=== PATIENT | male | born 1965 | race Caucasian/White ===

== ENCOUNTER → 2023-05-30 10:49 | Outpatient (CLI) | payer OTHER, SELFPAY ==
--- NOTE | 2023-05-30 | DI.MRI.S_ITS ---
PROCEDURE: MR KNEE RT WO CON INDICATIONS: Pain in right knee TECHNIQUE: Noncontrast sagittal PD fast spin echo and T2 fast spin echo with fat saturation, sagittal 3-D FLASH with fat saturation; coronal T1 spin echo and PD fast spin echo with fat saturation, and axial PD fast spin echo with fat saturation through the knee. COMPARISON: None. FINDINGS: Image quality: Excellent. Anterior cruciate ligament: Intact. Posterior cruciate ligament: Intact. Medial collateral ligament: Intact. Lateral collateral ligament: Intact. Medial meniscus: Intact. Lateral meniscus: Intact. Medial and lateral tendons: The semimembranosus tendon insertions appear intact. Visualized portions of the pes anserinus tendons appear normal. The popliteus tendon is intact. Iliotibial band appears normal. Anterior structures: Mild to moderate patellar tendinosis and distal quadriceps tendinosis. Small nonedematous enthesophytes at the distal quadriceps insertion. No patellar subluxation. No femoral trochlear dysplasia or ventral trochlear prominence. No edema in the infrapatellar fat pad. Bones and cartilage: No bone marrow contusions or fractures. Medial femorotibial cartilage: Mild partial-thickness cartilage thinning and surface irregularity in the weight-bearing portion of the medial femorotibial compartment. Lateral femorotibial cartilage: Partial-thickness cartilage irregularity is seen at the posterior weight-bearing portion of the lateral femorotibial compartment. Patellofemoral cartilage: Mild grade 2 chondromalacia. Soft tissues: Small joint effusion. Trace medial popliteal cyst. The musculature surrounding the knee is normal in bulk. IMPRESSION: 1. No acute trabecular bone injury. Cruciate and collateral ligaments are intact. No meniscal tear. 2. Tricompartmental grade 2 chondromalacia with small marginal osteophytes. 3. [id number] patellar tendinosis and distal quadriceps tendinosis. 4. Small joint effusion. Approved by: Jerry Morgan M.D. on 05/31/2023 at 9:49
== END ==
LOC: MRI 10:51
PROVIDERS: PCP Family Medicine; Referring Provider Family Medicine; Visit Provider Family Medicine
DX: M67.863 Other specified disorders of tendon, right knee (principal); M22.41 Chondromalacia patellae, right knee; M25.461 Effusion, right knee; M25.561 Pain in right knee; R93.6 Abnormal findings on diagnostic imaging of limbs
CPT/HCPCS: 73721

== ENCOUNTER 2024-04-13 14:54 | Inpatient (IN) | payer OTHER, SELFPAY ==
[2024-04-13] VITALS (7 sets, daily range): BP systolic 140–164; BP diastolic 89–107; PULSE 60–79; RESP 15–22; TEMP 36.6–37; O2SAT 97–99; BMI 31.0
--- NOTE | 2024-04-13 15:02 | DI.RAD.S_ITS ---
PROCEDURE: XR CHEST 1V INDICATIONS: chest pain TECHNIQUE: One view of the chest was acquired. COMPARISON: None. FINDINGS: Surgical changes and devices: None. Lungs and pleura: Lungs are clear. Low lung volumes. No pleural effusions or pneumothorax. Mediastinum: Mediastinal contours appear normal. Heart size is normal. Bones and chest wall: No suspicious bony lesions. Overlying soft tissues appear unremarkable. IMPRESSION: No acute cardiopulmonary abnormality is seen. Dictated by: Douglas Crump M.D. on 04/13/2024 at 15:18 Approved by: Douglas Crump M.D. on 04/13/2024 at 15:19
--- NOTE | 2024-04-13 15:02 | EKG_ITS ---
[address] [address] Test Date: 2024-04-13 Pat Name: Everett Sanon Department: Room: Gender: Male Laboratory Administrative Director: GABINO : 1965 Requested By: Order Number: [id number] Reading MD: Haresh Zuniga Measurements Intervals [place] Rate: 77 P: 38 [place]: 154 QRS: -3 QRSD: 110 T: 36 QT: 378 QTc: 427 Interpretive Statements Normal sinus rhythm Incomplete right bundle branch block Electronically Signed On 04-13-2024 16:08:38 PST by Haresh Zuniga
[2024-04-13] MEDS: ASPIRIN 81 MG CHEW TAB 243 MG PO (15:15)
[2024-04-13 15:18] LABS: Add Manual Diff / Slide Review NO; Basophils Absolute Auto 0 /uL (0-100); Basophils Percent Auto 1.1 % (0-2); Eosinophils Absolute Auto 100 /uL (0-450); Eosinophils Percent Auto 2.1 % (2-4); Hematocrit 38.5 % (41-53); Hemoglobin 13.7 g/dL (13.5-17.5); Lymphocytes Absolute Auto 1100 /uL (1100-4500); Lymphocytes Percent Auto 36.1 % (25-40); Mean Corpuscular HGB Conc 35.6 % (30-36); Mean Corpuscular Hemoglobin 33.1 PG (26-34); Mean Corpuscular Volume 92.8 fL (80-100); Monocytes Absolute Auto 200 /uL (0-900); Monocytes Percent Auto 7.5 % (3-14); Neutrophils Absolute Auto 1700 /uL (1500-7000); Neutrophils Percent Auto 53.2 % (50-75); Platelet Count 135 X10^3/uL (150-400); Red Blood Cell Count 4.15 X10^6/uL (4.5-5.9); Red Cell Distribution Width 13.4 % (11.6-14.8); White Blood Cell Count 3.1 X10^3/uL (4.5-11.0)
[2024-04-13 15:26] LABS: Prothrombin Time 11.5 SECONDS (9.4-12.5)
[2024-04-13 15:27] LABS: Alanine Aminotransferase 70 IU/L (<50); Albumin 4.5 g/dL (3.5-5.0); Albumin Globulin Ratio 1.7 (1.0-2.8); Alkaline Phosphatase 45 U/L (38-126); Aspartate Aminotransferase 40 IU/L (17-59); BUN Creatinine Ratio 16.8 (6-22); Bilirubin Total 0.7 mg/dL (0.2-1.3); Blood Urea Nitrogen 17 mg/dL (9-20); Calcium 9.1 mg/dL (8.4-10.2); Carbon Dioxide 26 mmol/L (22-32); Chloride 100 mmol/L (98-107); Creatine Kinase 112 U/L (55-170); Estimated Glomerular Filt Rate > 60 mL/min (>60); Globulin 2.7 g/dL (1.7-4.1); Glucose 307 mg/dL (70-100); HEMOLYSIS < 15 (0-50); Lipase 187 U/L (23-300); Magnesium 1.6 mg/dL (1.6-2.3); Potassium 4.1 mmol/L (3.4-5.1); Sodium 135 mmol/L (137-145); Total Protein 7.2 g/dL (6.3-8.2)
[2024-04-13 15:28] LABS: PTT Partial Thromboplastin Tim 33 SECONDS (25.1-36.5)
[2024-04-13 15:39] LABS: NT-proBNP (BNP-Adult 18+) < 20 pg/mL (<125); Troponin I < 0.012 ng/mL (0.01-0.034)
[2024-04-13 18:17] LABS: Troponin I 0.029 ng/mL (0.01-0.034)
--- NOTE | 2024-04-13 18:48 | ED_ITS ---
HPI - Chest Pain General Chief Complaint: Chest Pain Stated Complaint: possible heart attack Time Seen by Provider: 04/13/24 15:28 History of Present Illness HPI narrative: 59-year-old male with no known coronary artery disease but multiple risk factors, history of diabetes, hypertension, history of hyperlipidemia on therapy, family history of CAD, but nonsmoker, recalls treadmill stress testing about 20 years ago, none last couple years, today was walking in the [place] area up a slight hill 130pm when he had chest discomfort lasting 5 minutes, midsternal, does not recall any diaphoresis but sensation of generalized weakness, completed his walk to work on a more flat surface about 1/4 mi total to work, was sweaty on his arrival there. He looked sweaty and pale to his coworkers, then decided to be evaluated here. No further chest discomfort. Feels better. Related Data Home Medications Medication Instructions Recorded Confirmed cetirizine 10 mg tablet 10 mg PO QDAY #0 tabs 10/30/15 04/13/24 sertraline 25 mg tablet (Zoloft) 25 mg PO QDAY #30 tabs 10/30/15 04/13/24 simvastatin 10 mg tablet (Zocor) 10 mg PO HS #0 tabs 10/30/15 04/13/24 dulaglutide 0.75 mg/0.5 mL 0.75 mg SUBCUT QWEEK 04/13/24 04/13/24 subcutaneous pen injector (Trulicity) metformin 500 mg tablet,extended 1,000 mg PO DAILY 04/13/24 04/13/24 release 24 hr Allergies Allergy/AdvReac Type Severity Reaction Status Date / Time No Known Drug Allergies Allergy Verified 04/13/24 15:15 Patient History Medical History (Updated 04/13/24 @ 20:13 by Frank Almaguer MD) SHON on CPAP Diabetes type 2 Hyperlipidemia Social History household members: spouse Smoking Status: Never smoker alcohol intake: current Smoking Status: Never smoker Exam Narrative Exam Narrative: GENERAL: Well-developed patient, in mild distress. HEAD: Atraumatic. Normocephalic. EYES: Pupils equal round and reactive. Extraocular motions intact. No scleral icterus. No injection or drainage. ENT: Nose without bleeding, purulent drainage. Throat without erythema, tonsillar hypertrophy or exudate. Airway patent. NECK: Trachea midline. Non tender CARDIOVASCULAR: Regular rate and rhythm without murmurs, gallops, or rubs. RESPIRATORY: Clear to auscultation. Breath sounds equal bilaterally. No wheezes, rales, or rhonchi. GASTROINTESTINAL: Abdomen soft, non-tender, nondistended. EXTREMITIES: No edema or joint tenderness. BACK: Nontender without deformity or crepitance. No flank tenderness. NEURO: AOx3. Motor functions grossly nonfocal SKIN: No rash or erythema of visible areas Initial Vital Signs Initial Vital Signs: Vital Signs Temperature 98 F 04/13/24 14:57 Pulse Rate 79 04/13/24 14:57 Respiratory Rate 17 04/13/24 14:57 Blood Pressure 140/89 04/13/24 14:57 Pulse Oximetry 99 04/13/24 14:57 Oxygen Delivery Method Room Air 04/13/24 14:57 Scores HEART Score Heart Score history: Moderately Suspicious Heart Score EKG: Normal Heart Score Age: 45-64 years old Heart Score risk factors: > 3 risk factors or hx of atherosclerotic disease Heart Score troponin: < or = to normal limit Heart Score Total: 4 Course Orders Ordered: ED Orders 04/13/24 17:35 Trop I [Troponin I] Stat Acetaminophen (Acetaminophen 325 Mg Tablet) 650 mg PO Q6H PRN PRN Reason: Fever/Mild Pain (1-3) Al Hydrox/Mg Hydrox/Simethicone (Mag Hydrox/Alum/Simeth 30 Ml Udc) 30 ml PO Q6HR PRN PRN Reason: Dyspepsia Atorvastatin Calcium (Atorvastatin 20 Mg Tablet) 10 mg PO BEDTIME [facility] Last Admin: 04/13/24 22:18 Dose: 10 mg Documented By: MYLES Enoxaparin Sodium (Enoxaparin 40 Mg/0.4 Ml Syringe) 40 mg SUBCUT DAILY [facility] Dextrose (D10w) 100 mls @ 1,200 mls/hr IV PRN PRN PRN Reason: Hypoglycemia Influenza Virus Vaccine (Influenza Vaccine Qiv 0.5 Ml Syringe) 0.5 ml IM .ONCE ONE Stop: 04/14/24 21:23 Insulin Human Lispro (Insulin Lispro 100 Unit/Ml 3ml Vial) 0 unit SUBCUT ACHS [facility]; Protocol Last Admin: 04/13/24 22:19 Dose: Not Given Documented By: FM Naloxone HCl (Naloxone 0.4 Mg/Ml Vial) 0.2 mg IV Q2MIN PRN PRN Reason: Opiate Reversal Ondansetron HCl (Ondansetron 4 Mg/2 Ml Inj) 4 mg IV Q8HR PRN PRN Reason: Nausea And Vomiting Sertraline HCl (Sertraline 50 Mg Tablet) 25 mg PO DAILY BHAVNA Discontinued Medications Aspirin (Aspirin 81 Mg Chew Tab) 243 mg PO NOW ONE Stop: 04/13/24 15:03 Last Admin: 04/13/24 15:15 Dose: 243 mg Documented By: PAOLO Insulin Human Regular (Insulin Regular 100 Unit/Ml 3 Ml Vial) 5 unit SUBCUT NOW ONE Stop: 04/13/24 19:05 Last Admin: 04/13/24 19:17 Dose: 5 unit Documented By: JUMA Co-signed By: EDUARDO Vital Signs Vital signs: Vital Signs - 8 hr 04/13/24 18:00 04/13/24 18:00 04/13/24 18:30 Pulse Rate 64 60 Respiratory Rate 20 15 Blood Pressure 150/100 H Pulse Oximetry 97 97 04/13/24 18:30 04/13/24 19:00 04/13/24 19:00 Pulse Rate 65 Respiratory Rate 22 Blood Pressure 145/101 H 143/105 H Pulse Oximetry 99 04/13/24 19:30 04/13/24 19:30 Pulse Rate 60 Respiratory Rate 18 Blood Pressure 156/105 H Pulse Oximetry 98 MDM - Chest Pain Lab Data Attestation: I reviewed the patient's lab results. Lab results narrative: White blood cell count 3100, hemoglobin 13.7, platelets adequate. Glucose 307, anion gap normal. Sodium 135 with potassium 4.1, serum CO2 26. BUN 17 with creatinine 1.01 normal. AST slight elevation, LFTs otherwise unremarkable. Troponin negative/unmeasurable. 04/13/24 15:05 04/13/24 15:05 Labs: Lab Results 04/13/24 04/13/24 Range/Units 15:05 17:35 WBC 3.1 L (4.5-11.0) X10^3/uL RBC 4.15 L (4.5-5.9) X10^6/uL Hgb 13.7 (13.5-17.5) g/dL Hct 38.5 L (41-53) % MCV 92.8 (80-100) fL MCH 33.1 (26-34) PG MCHC 35.6 (30-36) % RDW 13.4 (11.6-14.8) % Plt Count 135 L (150-400) X10^3/uL Neut % (Auto) 53.2 (50-75) % Lymph % (Auto) 36.1 (25-40) % [place] % (Auto) 7.5 (3-14) % Eos % (Auto) 2.1 (2-4) % Baso % (Auto) 1.1 (0-2) % Neut # (Auto) 1700 (7280-3378) /uL Lymph # (Auto) 1100 (6424-4721) /uL [place] # (Auto) 200 (0-900) /uL Eos # (Auto) 100 (0-450) /uL Baso # (Auto) 0 (0-100) /uL PT 11.5 (9.4-12.5) SECONDS INR 1.0 (0.9-1.3) APTT 33 (25.1-36.5) SECONDS Sodium 135 L (137-145) mmol/L Potassium 4.1 (3.4-5.1) mmol/L Chloride 100 (98-107) mmol/L Carbon Dioxide 26 (22-32) mmol/L BUN 17 (9-20) mg/dL Creatinine 1.01 (0.66-1.25) mg/dL Estimated GFR > 60 (>60) mL/min BUN/Creatinine Ratio 16.8 (6-22) Glucose 307 H (70-100) mg/dL Calcium 9.1 (8.4-10.2) mg/dL Magnesium 1.6 (1.6-2.3) mg/dL Total Bilirubin 0.7 (0.2-1.3) mg/dL AST 40 (17-59) IU/L ALT 70 H (<50) IU/L Alkaline Phosphatase 45 (38-126) U/L Total Creatine Kinase 112 (55-170) U/L Troponin I < 0.012 0.029 (0.01-0.034) ng/mL NT-Pro-B Natriuret Pep < 20 (<125) pg/mL Total Protein 7.2 (6.3-8.2) g/dL Albumin 4.5 (3.5-5.0) g/dL Globulin 2.7 (1.7-4.1) g/dL Albumin/Globulin Ratio 1.7 (1.0-2.8) Lipase 187 (23-300) U/L Imaging Data Chest x-ray: Radiologist's Impression: [address] [address] XRay Report Signed Patient: Everett Sanon MR#: [id number] : 1965 Acct:[id number] Age/Sex: 59 / M Date of Service: 04/13/24 Loc: ED Accession Number: [id number] Procedure: XR chest 1V Ordering Provider: Nighat Powell MD PROCEDURE: XR CHEST 1V INDICATIONS: chest pain TECHNIQUE: One view of the chest was acquired. COMPARISON: None. FINDINGS: Surgical changes and devices: None. Lungs and pleura: Lungs are clear. Low lung volumes. No pleural effusions or pneumothorax. Mediastinum: Mediastinal contours appear normal. Heart size is normal. Bones and chest wall: No suspicious bony lesions. Overlying soft tissues appear unremarkable. IMPRESSION: No acute cardiopulmonary abnormality is seen. Dictated by: Douglas Crump M.D. on 04/13/2024 at 15:18 Approved by: Douglas Crump M.D. on 04/13/2024 at 15:19 ECG Data Attestation: I personally reviewed and interpreted this ECG as follows: Interpretation: Normal sinus rhythm with rate of 77, no obvious ST segment elevation or depression changes. Incomplete right bundle-branch block noted. NM 154, QRS 110, QTC 427. [facility] Narrative Medical decision making narrative: 59-year-old male with midsternal chest discomfort walking up hill lasted about 5 minutes, diaphoretic appearing when he finishes 1/4 mi walk at work. Multiple cardiac risk factors of diabetes, hypertension, hyperlipidemia, family history, but is a nonsmoker. No recent cardiac stress testing. EKG shows right bundle branch block pattern. Troponin negative. We will repeat troponin. Chest x-ray unremarkable. Heart score=4, moderate risk. Patient was given 4 baby aspirin by mouth at triage. No further chest pain since earlier this afternoon. Repeat troponin 0.02 also low/negative. We will consult Neurology, consider stress testing. Patient amenable 1899, case discussed with cardiology on-call Dr. Squires, agrees patient would be candidate for stress testing, prefers exercise stress test, also echocardiogram. PCP at [facility]. Will contact hospitalist regarding admission. 1929, case discussed with hospitalist Dr. Almaguer who accepts patient for admission to observation Critical Care Time Critical Care Time Critical Care Time: Yes Total Critical Care Time: 35 Attestation: The high probability of a clinically significant, sudden or life threatening deterioration of the [cardiopulmonary] system(s) required my full and direct attention, intervention and personal management. The aggregate critical care time was [35] minutes. This time is in addition to time spent performing reported procedures but includes the following: [x] Data Review and interpretation [x] Patient assessment and monitoring of vital signs [x] Documentation [x] Medication orders and management Discharge Plan Departure Patient Disposition: Admitted as Observation Clinical Impression: Chest pain, History of diabetes mellitus, History of hyperlipidemia, History of hypertension Admit Date/Time: 04/13/24 19:31 Admit Provider: Frank Metzger
[2024-04-13] MEDS: INSULIN REGULAR 100 UNIT/ML 3 ML VIAL SUBCUT (19:17)
--- NOTE | 2024-04-13 19:54 | DI.ECHO.S_ITS ---
[facility] : : [address] : : [place] : : [address] : : Phone: [phone] Echocardiogram Report + :Name: LESLIE MITCHELL Study Date: 04/14/2024 Height: 69 in : :[facility] ReadingLocation: Weight: 210 lb : : Gender: Male BSA: 2.1 m2 : :: 1965 Age: 59 yrs BP: 128/94 mmHg: :Reason For Study: CHEST PAIN : :Ordering Physician: JUAN ANTONIO : :ANDREW FAIR Performed By: Rupert Zuniga : :Referring: ANDREW CABRERA : + Interpretation Summary Probably normal LV systolic function. LVEF is estimated at 50%. Poor endocardial border visualization reduces confidence in assessing LV systolic function and wall motion abnormalities. Normal RV size and function. Atria are normal size. No significant valvular pathology is noted. Other findings as below. No previous echo images are available for comparison. Procedure: A two-dimensional transthoracic echocardiogram with color flow and Doppler was performed. The study quality was technically good. There is no prior echocardiogram noted for this patient. The patient was in normal sinus rhythm during the exam. Left Ventricle: The left ventricle is normal in size. Left ventricular wall thickness is mildly increased. There is no ventricular septal defect visualized. Left ventricular systolic function is probably normal. There are no focal wall motion abnormalities. Diastolic parameters suggest a relaxation abnormality of the left ventricle, consistent with probable normal filling pressures. Right Ventricle: The right ventricle is normal in size and function. Atria: The left atrial size is normal. Right atrial size is normal. There is no Doppler evidence for an interatrial shunt. Mitral Valve: The mitral valve leaflets appear normal. There is no evidence of stenosis, fluttering, or prolapse. There is no mitral regurgitation noted. Aortic Valve: The aortic valve is trileaflet. The aortic valve opens well. No aortic regurgitation is present. Tricuspid Valve: The tricuspid valve is normal in structure and function. There is a trace or physiologic amount of tricuspid regurgitation. Pulmonic Valve: The pulmonic valve is not well seen, but is grossly normal. There is no pulmonic valvular regurgitation. Great Vessels: The aortic root is normal size. The ascending aorta is at the upper limits of normal in size. The pulmonary artery is normal size. The inferior vena cava was not visualized. Pericardium/ Pleura There is no pericardial effusion. MMode/2D Measurements & Calculations LVIDd: 4.2 cm LVOT diam: 2.2 cm LVIDs: 3.2 cm Ao root diam: 3.8 cm FS: 24.1 % asc Aorta Diam: 3.8 cm EPSS: 0.77 cm IVSd: 1.2 cm LVPWd: 0.85 cm LV zafar. diameter/BSA (cm/m^2): 2.0 LV sys. diameter/BSA (cm/m^2): 1.5 LA A2 area: 15.7 cm2 RA long axis: 4.2 cm LA A4 area: 15.5 cm2 RA area: 12.2 cm2 LA length (vol): 5.2 cm RA vol: 30.3 ml LA vol: 39.6 ml RA : 14.4 ml/m2 LA vol index: 18.8 ml/m2 RVD1 (basal): 3.8 cm RVD2 (mid): 3.3 cm TAPSE: 1.9 cm Doppler Measurements & Calculations Ao V2 max: 114.4 cm/sec LVOT Max Raji: 94.1 cm/sec Ao V2 mean: 84.2 cm/sec LV V1 max P.5 mmHg Ao max P.2 mmHg LV V1 VTI: 19.8 cm Ao mean P.1 mmHg PACHECO(I,D): 3.3 cm2 Ao V2 VTI: 23.4 cm PACHECO(V,D): 3.2 cm2 sev ratio: 0.85 PACHECO indexed to BSA (cm^2/m^2): 1.6 MV E max raji: 54.9 cm/sec PA V2 max: 61.4 cm/sec MV A max raji: 76.8 cm/sec PA V2 mean: 40.9 cm/sec MV E/A: 0.72 PA mean P.78 mmHg Med Peak E' Raji: 5.6 cm/sec PA pr(Accel): 34.5 mmHg E/E' med: 9.8 Lat Peak E' Raji: 8.1 cm/sec E/E' lat: 6.8 E/e' average: 8.3 MV dec time: 0.23 sec SV(LVOT): 77.5 ml Reading Physician:01:33 PM
--- NOTE | 2024-04-13 20:03 | PM.HP.1 ---
History of Present Illness History of Present Illness Date Patient Seen: 04/13/24 Time Patient Seen: 21:30 Chief complaint: Chest pain Narrative: 59 y/o with PMH of DM (Dx-ed 2 years ago), SOHN (on CPAP), HTN, HLD and positive family history for CAD (father had CABG x 3 in his 40-ies), presented with chest pain. From the ED:was walking in the [place] area up a slight hill 130pm when he had chest discomfort brief episode 5 minutes parasternal midsternal, does not recall any diaphoresis but sensation of generalized weakness, completed as walk to work on a more flat surface about 1/4 mi total, was sweaty on his arrival there. No further chest discomfort Workup with non-ischemic EKG and 2 troponins WNR but with upward trend. Likely stage 2 or 3a CKD in addition to mild pancytopenia. CXR non-revealing. Without evidence of ACS while in the ED and at the time of admission [facility] Medical History (Updated 04/13/24 @ 20:13 by Frank Almaguer MD) SHON on CPAP Diabetes type 2 Hyperlipidemia Social History household members: spouse Smoking Status: Never smoker alcohol intake: current Meds Home Medications and Allergies Home Medications Medication Instructions Recorded Confirmed Type cetirizine 10 mg tablet 10 mg PO QDAY #0 tabs 10/30/15 04/13/24 History sertraline 25 mg tablet (Zoloft) 25 mg PO QDAY #30 tabs 10/30/15 04/13/24 History simvastatin 10 mg tablet (Zocor) 10 mg PO HS #0 tabs 10/30/15 04/13/24 History dulaglutide 0.75 mg/0.5 mL 0.75 mg SUBCUT QWEEK 04/13/24 04/13/24 History subcutaneous pen injector (Trulicity) metformin 500 mg tablet,extended 1,000 mg PO DAILY 04/13/24 04/13/24 History release 24 hr Allergies Allergy/AdvReac Type Severity Reaction Status Date / Time No Known Drug Allergies Allergy Verified 04/13/24 15:15 Review of Systems Cardiovascular Comments: substernal chest pressure / pain episode that lasted 5 minutes, following uphill walk. Continues to have some unusual feeling in the chest Respiratory Comments: w/o dyspnea Musculoskeletal Comments: w/o chest wall pain Neurologic Comments: w/o headache Exam Vital Signs (past 8 hours): - 04/13/24 14:57 04/13/24 18:00 04/13/24 18:00 Temperature 98 F Pulse Rate 79 64 Respiratory Rate 17 20 Blood Pressure 140/89 150/100 H Pulse Oximetry 99 97 Oxygen Delivery Method Room Air 04/13/24 18:30 04/13/24 18:30 Temperature Pulse Rate 60 Respiratory Rate 15 Blood Pressure 145/101 H Pulse Oximetry 97 Oxygen Delivery Method Oxygen Delivery Method Room Air Const Other: in no distress HENMT Other: normal appearance Neck Other: supple, w/o thyromegaly Resp Other: normal respiratory effort Cardio Other: RRR Skin Other: w/o rashes or lesions Neuro Other: w/o deficits Extrem Other: w/o swelling Psych Other: lucid Objective ECG Impression: NSR 77, RBBB Imaging Chest x-ray: My impression: hypoinflated, w/o infiltrates, w/o cardiomegaly Radiologist's impression: No acute cardiopulmonary abnormality is seen. Labs 04/13/24 15:05 04/13/24 15:05 Labs: Laboratory Results - last 24 hr 04/13/24 04/13/24 15:05 17:35 WBC 3.1 L RBC 4.15 L Hgb 13.7 Hct 38.5 L MCV 92.8 MCH 33.1 MCHC 35.6 RDW 13.4 Plt Count 135 L Neut % (Auto) 53.2 Lymph % (Auto) 36.1 [place] % (Auto) 7.5 Eos % (Auto) 2.1 Baso % (Auto) 1.1 Neut # (Auto) 1700 Lymph # (Auto) 1100 [place] # (Auto) 200 Eos # (Auto) 100 Baso # (Auto) 0 PT 11.5 INR 1.0 APTT 33 Sodium 135 L Potassium 4.1 Chloride 100 Carbon Dioxide 26 BUN 17 Creatinine 1.01 Estimated GFR > 60 BUN/Creatinine Ratio 16.8 Glucose 307 H Calcium 9.1 Magnesium 1.6 Total Bilirubin 0.7 AST 40 ALT 70 H Alkaline Phosphatase 45 Total Creatine Kinase 112 Troponin I < 0.012 0.029 NT-Pro-B Natriuret Pep < 20 Total Protein 7.2 Albumin 4.5 Globulin 2.7 Albumin/Globulin Ratio 1.7 Lipase 187 Assessment & Plan Assessment and plan (1) Chest pain: Status: Acute (2) Hyperlipidemia: Status: Acute (3) Diabetes type 2: Status: Acute (4) Pancytopenia: Status: Acute (5) SHON on CPAP: Status: Acute Assessment & Plan narrative: Chest Pain - had ASA, placed in observation, telemetry monitoring, troponins - Echocardiogram, treadmill stress test - recommended by consulting internet security specialist, stress echo - risk factors w/o evidence of AVS on admission - pending lipids, A1C, TSH NIDDMT2 / CKD? - recently diagnosed, at home on metformin and Trulicity - CCD, low SS while hospitalized - likely CKD, renal dosing HLD - statin SHON - CPAP Pancytopenia - mild - not clear how chronic this is - monitored, follow with PCP Depression - Zoloft DVT prophylaxis - Lovenox Time-Based Coding :: [TOTAL MINUTES] spent with patient and on the chart (including review of chart, obtaining history, exam, reviewing outside data, placing orders, documenting exam and treatment plan, and counseling patient) on [DATE].
[2024-04-13] MEDS: ATORVASTATIN 20 MG TABLET 10 MG PO (22:18)
[2024-04-13 23:42] LABS: Troponin I 0.019 ng/mL (0.01-0.034)
[2024-04-14 05:13] LABS: Add Manual Diff / Slide Review NO; Basophils Absolute Auto 0 /uL (0-100); Basophils Percent Auto 0.6 % (0-2); Eosinophils Absolute Auto 100 /uL (0-450); Eosinophils Percent Auto 2.1 % (2-4); Hematocrit 38.2 % (41-53); Lymphocytes Absolute Auto 1200 /uL (1100-4500); Lymphocytes Percent Auto 32.7 % (25-40); Mean Corpuscular HGB Conc 36.5 % (30-36); Mean Corpuscular Hemoglobin 33.6 PG (26-34); Monocytes Absolute Auto 300 /uL (0-900); Monocytes Percent Auto 6.8 % (3-14); Neutrophils Absolute Auto 2100 /uL (1500-7000); Neutrophils Percent Auto 57.8 % (50-75); Platelet Count 127 X10^3/uL (150-400); Red Blood Cell Count 4.16 X10^6/uL (4.5-5.9); Red Cell Distribution Width 13.6 % (11.6-14.8); White Blood Cell Count 3.7 X10^3/uL (4.5-11.0)
[2024-04-14 05:20] LABS: Hemoglobin A1C% w Est Avg Glu 7.5 % (4.0-6.0)
[2024-04-14 05:28] LABS: Blood Urea Nitrogen 15 mg/dL (9-20); Calcium 9.2 mg/dL (8.4-10.2); Carbon Dioxide 25 mmol/L (22-32); Chloride 102 mmol/L (98-107); Cholesterol 175 mg/dL (140-199); Estimated Glomerular Filt Rate > 60 mL/min (>60); Glucose 168 mg/dL (70-100); HDL Cholesterol 34 mg/dL (40-60); HEMOLYSIS < 15 (0-50); LDL Cholesterol Calculated 92 mg/dL (<100); Magnesium 1.8 mg/dL (1.6-2.3); Potassium 3.6 mmol/L (3.4-5.1); Sodium 138 mmol/L (137-145); Triglycerides 243 mg/dL (35-150)
[2024-04-14 06:20] LABS: TSH w/ Reflex to FT4 1.36 uIU/mL (0.47-4.68)
[2024-04-14 06:33] VITALS: BP 142/89; PULSE 80; RESP 16; O2SAT 99
--- NOTE | 2024-04-14 08:50 | PC.NURSE ---
0835: Pt arrived back from stress test, ambulated from w/c to bed SBA. Provider at bedside, pt NPO until provider discusses next steps with cardiology. Pt notified. Call light within reach, care ongoing.
[2024-04-14 09:00] VITALS: BP 128/94; PULSE 88; RESP 20; O2SAT 98
[2024-04-14 09:01] VITALS: TEMP 36
[2024-04-14] MEDS: INSULIN LISPRO 100 UNIT/ML 3ML VIAL SUBCUT ×2 (09:04→12:25)
[2024-04-14 11:31] LABS: Troponin I < 0.012 ng/mL (0.01-0.034)
--- NOTE | 2024-04-14 11:34 | P.DS_ITS ---
History of Present Illness History of Present Illness Date Patient Seen: 04/14/24 Time Patient Seen: 08:40 Date of Onset of Symptoms: 04/13/24 Chief complaint: Chest pain Narrative: 59 y/o with PMH of DM (Dx-ed 2 years ago), SHON (on CPAP), HTN, HLD and positive family history for CAD (father had CABG x 3 in his 40-ies), presented with chest pain. From the ED:was walking in the [place] area up a slight hill 130pm when he had chest discomfort brief episode 5 minutes parasternal midsternal, does not recall any diaphoresis but sensation of generalized weakness, completed as walk to work on a more flat surface about 1/4 mi total, was sweaty on his arrival there. No further chest discomfort Workup with non-ischemic EKG and 2 troponins WNR but with upward trend. Likely stage 2 or 3a CKD in addition to mild pancytopenia. CXR non-revealing. Without evidence of ACS while in the ED and at the time of admission Discharge Providers Provider Date of admission: 04/13/24 19:31 Discharge Date: 04/14/24 Primary care physician: Trisha Betts DO Discharge provider: Ru Isabel MD Summary Hospital Course Discharge Diagnosis: 1. Unstable angina 2. Diabetes mellitus, type 2 3. Hyperlipidemia 4. Obstructive sleep apnea Hospital Course: 59-year-old man under primary care of Trisha Betts D.O. experienced chest pressure, shortness of breath, pallor and diaphoresis after walking up a hill to work yesterday. Upon arriving to work coworkers recommended urgent medical evaluation. He notes a family history of premature coronary disease in his father at age 38, and several family members in their 40s and 50s. He has no history of tobacco use and drinks 3 alcoholic beverages nightly. He was seen at [facility] emergency department and reportedly chest pain-free on arrival, though stated that he had experienced ongoing chest pressure at rest prior to arrival. He had an unremarkable EKG, chest x-ray, cardiac enzymes and laboratory workup. He was admitted to observation telemetry status and had normal serial cardiac enzymes. He underwent exercise stress testing without nuclear imaging and experienced 3/10 chest discomfort with [address] segment depression leads V2 through V6 and 2, 3 and AVF, with chest pain and EKG changes resolving in recovery. He exercised a total of 7 minutes, 41 seconds, 8.6 Mets, SA I +11%, maximum heart rate 149 beats per minute (93% of predicted), with appropriate blood pressure response with maximum blood pressure 160/90. Following arrival to the medical floor he remained chest pain-free and was administered aspirin, metoprolol, and heparinized on the cardiac IV heparin protocol. Arrangements were made for transfer to a tertiary level facility for ongoing care in the setting of new onset unstable angina. Time Spent with Patient Time spent: Greater than 30 minutes Exam Vital Signs (past 8 hours): - 04/14/24 06:33 04/14/24 09:00 04/14/24 09:01 Temperature 96.8 F L Pulse Rate 80 88 Respiratory Rate 16 20 Blood Pressure 142/89 H 128/94 H Pulse Oximetry 99 98 Oxygen Flow Rate 0 Oxygen Delivery Method Room Air Oxygen Flow Rate 0 Narrative Exam Narrative: GENERAL: This is a well-nourished, well-developed patient, in no apparent distress. HEAD: Atraumatic. Normocephalic. No temporal or scalp tenderness. EYES: Pupils equal round and reactive. Extraocular motions intact. No scleral icterus. No injection or drainage. ENT: Mucous membranes pink and moist. NECK: Trachea midline. No JVD, bruits or lymphadenopathy. Supple, nontender, no meningeal signs. CARDIOVASCULAR: Regular rate and rhythm without murmurs, gallops, or rubs. RESPIRATORY: Clear to auscultation. GASTROINTESTINAL: Abdomen soft, non-tender, nondistended. EXTREMITIES: No clubbing, cyanosis, or edema. BACK: Nontender without deformity or crepitance. No flank tenderness. NEUROLOGIC: Alert, oriented, speech fluent, full upper and lower motor strength, no focal deficits evident. DERMATOLOGIC: No rashes or skin lesions. Objective ECG Impression: Normal sinus rhythm at 77 beats per minute Incomplete right bundle branch block Imaging Chest x-ray: Radiologist's impression: No acute cardiopulmonary abnormality is seen. Labs 04/14/24 04:04 04/14/24 04:04 Labs: Laboratory Results - last 24 hr 04/13/24 04/13/24 04/13/24 15:05 17:35 23:09 WBC 3.1 L RBC 4.15 L Hgb 13.7 Hct 38.5 L MCV 92.8 MCH 33.1 MCHC 35.6 RDW 13.4 Plt Count 135 L Neut % (Auto) 53.2 Lymph % (Auto) 36.1 Sullivan % (Auto) 7.5 Eos % (Auto) 2.1 Baso % (Auto) 1.1 Neut # (Auto) 1700 Lymph # (Auto) 1100 Sullivan # (Auto) 200 Eos # (Auto) 100 Baso # (Auto) 0 PT 11.5 INR 1.0 APTT 33 Sodium 135 L Potassium 4.1 Chloride 100 Carbon Dioxide 26 BUN 17 Creatinine 1.01 Estimated GFR > 60 BUN/Creatinine Ratio 16.8 Glucose 307 H Hemoglobin A1c Calcium 9.1 Magnesium 1.6 Total Bilirubin 0.7 AST 40 ALT 70 H Alkaline Phosphatase 45 Total Creatine Kinase 112 Troponin I < 0.012 0.029 0.019 NT-Pro-B Natriuret Pep < 20 Total Protein 7.2 Albumin 4.5 Globulin 2.7 Albumin/Globulin Ratio 1.7 Triglycerides Cholesterol LDL Cholesterol, Calc HDL Cholesterol Lipase 187 TSH 04/14/24 04/14/24 04:04 11:03 WBC 3.7 L RBC 4.16 L Hgb 14.0 Hct 38.2 L MCV 92.0 MCH 33.6 MCHC 36.5 H RDW 13.6 Plt Count 127 L Neut % (Auto) 57.8 Lymph % (Auto) 32.7 Sullivan % (Auto) 6.8 Eos % (Auto) 2.1 Baso % (Auto) 0.6 Neut # (Auto) 2100 Lymph # (Auto) 1200 Sullivan # (Auto) 300 Eos # (Auto) 100 Baso # (Auto) 0 PT INR APTT Sodium 138 Potassium 3.6 Chloride 102 Carbon Dioxide 25 BUN 15 Creatinine 0.94 Estimated GFR > 60 BUN/Creatinine Ratio 16.0 Glucose 168 H D Hemoglobin A1c 7.5 H Calcium 9.2 Magnesium 1.8 Total Bilirubin AST ALT Alkaline Phosphatase Total Creatine Kinase Troponin I < 0.012 NT-Pro-B Natriuret Pep Total Protein Albumin Globulin Albumin/Globulin Ratio Triglycerides 243 H Cholesterol 175 LDL Cholesterol, Calc 92 HDL Cholesterol 34 L Lipase TSH 1.36 [facility] Medical History Diabetes type 2 Hyperlipidemia SHON on CPAP Social History household members: spouse Smoking Status: Never smoker alcohol intake: current Discharge Plan Discharge Plan Patient Disposition: [facility] Discharge orders & Medications Discharge Orders: Discharge (Order); Ordered 04/14/24 Ordered By: Ru Isabel Prescriptions: No Action cetirizine 10 MG tablet 10 mg PO QDAY Qty: 0 simvastatin [Zocor] 10 MG tablet 10 mg PO HS Qty: 0 sertraline [Zoloft] 25 MG tablet 25 mg PO QDAY Qty: 30 metformin 500 mg tablet extended release 24 hr 1,000 mg PO DAILY Trulicity 0.75 mg/0.5 mL Pen Injector 0.75 mg SUBCUT QWEEK Follow up/Referrals: Trisha Betts, [Primary Care Provider] - Visit Report/Discharge Packet Stand Alone Forms: Patient Portal/API, Stroke Signs & Symptoms Discharge Data Primary Care Provider: Trisha Betts Attending Provider: Frank Metzger Admit Date/Time: 04/13/24 19:31 Quality VTE Deep Vein Thrombosis/Pulmonary Embolism Present on Admission: No MIPS - Admit I confirm the patient?s Advance Care Plan is present, Code status is documented, Surrogate decision maker is in patient?s record [If Yes, STOP here]: Yes MIPS - Meds 'Current medications' to include all prescriptions, [id number] products, herbals, cannabis/cannabidiol products, and vitamin/mineral/dietary (nutritional) supplements. I have utilized all available resources to obtain, update, or review the patient?s current medications. [If Yes, STOP here]: Yes MIPS - DC The patient has a history of heart transplant or Left Ventricular Assist Device (LVAD). If yes, STOP here.: No The patient has current or prior documentation of left ventricular ejection fraction (LVEF) less than or equal to 40%, or moderate or severely depressed left ventricular systolic function.: No A. The patient was prescribed or already taking an Angiotensin-Converting Enzyme (SANG) Inhibitor, or Angiotensin Receptor Aleena (ARB).: No B. The patient was prescribed or already taking a beta-aleena. [If Yes to Both A & B, STOP here]: Yes Patient not prescribed/taking SANG or ARB, no reason given.: No Patient not prescribed/taking beta-aleena, no reason given.: No PROFEE Charge Codes Discharge inpatient/observation: [id number]
--- NOTE | 2024-04-14 12:00 | PC.NURSE ---
Day shift: Spoke with Dr Isabel, will start heparin drip at 11.1 units/kg/hr. Pt weight at 91.5 kg. PtTT ordered
[2024-04-14] MEDS: HEPARIN DRIP 25,000 UNIT/500 ML IV.SOLN 21.146 UNIT IV (12:02)
--- NOTE | 2024-04-14 12:03 | CM.DANOTE ---
DCP Assessment Note: Pt is a 59yo male, resident of [place], is admitted for unstable angina. Pt lives in a house with his , Bong. Pt's Primary Care Provider is Dr. Trisha Betts DO and insurance is [employer]. Reviewed chart and discussed with multidisciplinary team pt's medical status and initial discharge needs. Per hospitalist, pt pending transfer to hospital with laborer wrecking and salvaging capabilities due to results of stress test. Brief chart assessment completed due to transfer to higher level of care. Plan: Pt to transfer to higher level of care facility with laborer wrecking and salvaging capabilities. Leonor Hatfield [facility] Discharge Planning/Care Management CM Discharge Assessment Start: 04/14/24 10:39 Freq: Status: Active Protocol: Document 04/14/24 12:02 MW (Rec: 04/14/24 12:03 MW [id number]) Discharge Planning Assessment Assigned Ribbon Tier EARNEST Galvez DPOA/Assigned Designee Name Bong, Spouse Contact Information [phone] Advance Directives? No History Provided By Patient Has Patient been admitted in last 30 No days? Prior Living Arrangements House Comment [place] Household Members spouse Type of transporation used prior to Drives own vehicle admit Independent with ADL's Yes Is patient alert and oriented? Yes Caregiver for Another No Discharge Plan Transfer to Higher Level of Care Review Status In Process Please Provide Date Initial DC 04/14/24 Assessment Was Performed Next Review Type Continued Stay Review
[2024-04-14 12:05] LABS: PTT Partial Thromboplastin Tim 36 SECONDS (25.1-36.5)
[2024-04-14] MEDS: METOPROLOL IR 25 MG TABLET PO (12:17)
[2024-04-14 13:00] VITALS: BP 151/93; PULSE 72; RESP 16; TEMP 36.1; O2SAT 98
--- NOTE | 2024-04-14 13:35 | PC.NURSE ---
Day shift: Pt left facility via transport to [facility]. Pt was A&O x 4, stable condition, left with all belongings.
--- NOTE | 2024-04-14 13:38 | PC.NURSE ---
transfer: Report called into Lucio MITTAL at [facility], report given to transfer team. Pt left 1325 via stretcher.
--- NOTE | 2024-04-14 14:57 | DI.NM.S_ITS ---
DATE OF SERVICE: 04/14/2024 EXERCISE TREADMILL STRESS TEST PROCEDURE: Exercise treadmill stress test without imaging. ORDERING PROVIDER: Dr. Frank Almaguer. INDICATIONS: The patient is a 59-year-old diabetic male admitted with exertional chest discomfort. FINDINGS: 1. The patient was able to exercise for a total of 7 minutes 4 seconds on a standard Yony protocol, suggesting mild-moderately reduced exercise capacity with an DANNY of +11%, achieving 8.6 METS. 2. He had a normal heart rate and blood pressure response to exercise, achieving a maximum heart rate of 149 bpm (93% of his predicted maximum). 3. He was chest pain-free at rest and developed typical anginal-type chest discomfort at 6 minutes of exercise that became worse with further exercise and resolved 3 minutes into recovery. 4. His resting ECG showed sinus rhythm with normal ST segments. With exercise, he develops 2 to 3 mm of flat upsloping ST depression at around 6 minutes of exercise that becomes more down-sloping at peak exercise and into late recovery, consistent with an ischemic response. IMPRESSION: 1. Abnormal exercise treadmill stress test with exertional anginal- type chest discomfort and 2-[address] depression consistent with an ischemic response. 2. Mild to moderately reduced exercise capacity with a normal heart rate and blood pressure response. There were no arrhythmias. 3. The case was discussed with Dr. Ru Isabel. Everett Sanon - NOHEMY/leora/MARY KATE doc#: [id number]/job#: [id number] dd: 04/14/2024 12:12:00 dt: 04/14/2024 12:59:00 DICTATING MD/COPIES TO: Srinath Valadez MD; Dr. Frank Almageur COPIES MNE: FEI; ; Dr. Frank Almaguer
== END 2024-04-14 13:25 | disposition short-term general hospital (02) | DRG 311 ==
LOC: ED 19:26 → AC 20:03
PROVIDERS: Emergency Medicine; Internal Medicine; Admitting Provider Internal Medicine; Emergency Provider Emergency Medicine; PCP Family Medicine; Visit Provider Internal Medicine
DX: I20.0 Unstable angina (principal); D61.818 Other pancytopenia; E78.5 Hyperlipidemia, unspecified; G47.33 Obstructive sleep apnea (adult) (pediatric); F32.A Depression, unspecified; I12.9 Hypertensive chronic kidney disease with stage 1 through stage 4 chronic kidney disease, or unspecified chronic kidney disease; N18.31 Chronic kidney disease, stage 3a; E11.22 Type 2 diabetes mellitus with diabetic chronic kidney disease; Z79.84 Long term (current) use of oral hypoglycemic drugs; Z79.85 Long-term (current) use of injectable non-insulin antidiabetic drugs; Z82.49 Family history of ischemic heart disease and other diseases of the circulatory system
CPT/HCPCS: 36415; 71045; 80048; 80053; 80061; 82550; 82962; 83036; 83690; 83735; 83880; 84443; 84484; 85025; 85610; 85730; 93005; 93017; 93306; 96372; 99284; 99291; J1644; J1815